=== PATIENT | female | born 1960 | race Two or more races ===

== ENCOUNTER 2023-08-23 10:15 | Inpatient (IN) | payer OTHER ==
[~2023-08-23] VITALS: Ht 152.4 cm; Wt 65.3 kg
[2023-08-23] MEDS ORDERED: COZAAR100 MG PO (14:38)
[2023-08-23] MEDS ORDERED: NORVASC5 MG PO (14:39)
[2023-08-28 17:36] LABS: HEMATOCRIT 40.8 % (36.0-45.00); HEMOGLOBIN 13.7 g/dL (12.0-15.00); MEAN CORPUSCULAR HEMOGLOBIN 28.6 pg (27.00-32.0); MEAN CORPUSCULAR HGB CONC 33.6 g/dl (32.0-36.0); PLATELET COUNT 272 K/uL (150-450); RED CELL DISTRIBUTION WIDTH 15.2 % (11.5-14.5)
[2023-08-28 18:12] LABS: ALBUMIN 3.4 gm/dL (3.4-5.0); CALCIUM 8.6 mg/dL (8.5-10.1); CREATININE SERUM 0.59 mg/dL (0.55-1.02); GFR 103.28; PHOSPHOROUS 3.9 mg/dL (2.5-4.9); POTASSIUM 3.66 mEq/L (3.5-5.1)
[2023-08-29 06:54] LABS: HEMATOCRIT 38.8 % (36.0-45.00); HEMOGLOBIN 12.4 g/dL (12.0-15.00); MEAN CELL VOLUME 85.9 fL (80.00-100.00); MEAN CORPUSCULAR HEMOGLOBIN 27.5 pg (27.00-32.0); PLATELET COUNT 258 K/uL (150-450); RED BLOOD COUNT 4.52 M/uL (4.00-6.00); RED CELL DISTRIBUTION WIDTH 14.9 % (11.5-14.5)
[2023-08-29 07:11] LABS: ALBUMIN 2.9 gm/dL (3.4-5.0); CALCIUM 8.4 mg/dL (8.5-10.1); CREATININE SERUM 0.71 mg/dL (0.55-1.02); GFR 83.41; MAGNESIUM 1.9 mg/dL (1.8-2.4); PHOSPHOROUS 3.3 mg/dL (2.5-4.9); POTASSIUM 3.49 mEq/L (3.5-5.1)
[2023-08-30 06:25] LABS: HEMATOCRIT 35.8 % (36.0-45.00); HEMOGLOBIN 11.9 g/dL (12.0-15.00); MEAN CELL VOLUME 85.9 fL (80.00-100.00); MEAN CORPUSCULAR HEMOGLOBIN 28.6 pg (27.00-32.0); MEAN CORPUSCULAR HGB CONC 33.3 g/dl (32.0-36.0); PLATELET COUNT 242 K/uL (150-450); RED BLOOD COUNT 4.17 M/uL (4.00-6.00); RED CELL DISTRIBUTION WIDTH 15.6 % (11.5-14.5)
[2023-08-30 07:07] LABS: CALCIUM 7.9 mg/dL (8.5-10.1); CREATININE SERUM 0.58 mg/dL (0.55-1.02); GFR 105.34; POTASSIUM 4.02 mEq/L (3.5-5.1)
[2023-08-30 07:53] LABS: PHOSPHOROUS 1.9 mg/dL (2.5-4.9)
[2023-08-31] MEDS ORDERED: PEPCID AC20 MG PO (09:46)
[2023-08-31] MEDS ORDERED: INTESTINEX680 M1 PO (09:47)
[2023-08-31] MEDS ORDERED: TRAM1TAB98 PO (09:47)
== END 2023-08-31 13:25 | disposition home or self-care (01) | DRG 331 ==
LOC: O/R 08-28 07:05 → SURH 08-28 10:15 → SURG 08-28 12:16 → SURH 08-28 16:00 → SURG 08-31 13:25
PROVIDERS: Internal Medicine Geriatric Medicine; ADMIT Surgery; ATTEND Surgery
PROC: 0DTN4ZZ Resection of Sigmoid Colon, Percutaneous Endoscopic Approach (ICD-10-PCS; principal; 2023-08-31)
PROC: 0DBP4ZZ Excision of Rectum, Percutaneous Endoscopic Approach (ICD-10-PCS; 2023-08-31)
PROC: 07BC4ZZ Excision of Pelvis Lymphatic, Percutaneous Endoscopic Approach (ICD-10-PCS; 2023-08-31)
PROC: 0DJD8ZZ Inspection of Lower Intestinal Tract, Via Natural or Artificial Opening Endoscopic (ICD-10-PCS; 2023-08-31)
DX: C19 Malignant neoplasm of rectosigmoid junction (principal); R59.0 Localized enlarged lymph nodes; I11.0 Hypertensive heart disease with heart failure